=== PATIENT | female | born 1945 | race Hispanic/Latino ===

== ENCOUNTER 2022-04-26 10:24 | Inpatient (IN) | payer MEDICARE ==
[~2022-04-26] VITALS: Ht 157.5 cm; Wt 71.9 kg
[2022-04-26 10:51] LABS: BASOPHILS % (AUTO) 0.3 % (0.0-5.0); EOSINOPHILS % (AUTO) 0.5 % (0.0-8.0); HEMATOCRIT 34.6 % (36-48); LYMPHOCYTES % (AUTO) 27.1 % (21.0-51.0); MEAN CORPUSCULAR HEMOGLOBIN 27.4 pg (27.0-33.0); MEAN CORPUSCULAR HGB CONC 30.9 g/dL (32.0-36.0); MEAN CORPUSCULAR VOLUME 88.5 fL (79-99); MONOCYTES % (AUTO) 5.6 % (3.0-13.0); NEUTROPHILS % (AUTO) 65.7 % (40.0-77.0); PLATELET COUNT (AUTO) 209 K/uL (130-400); RED BLOOD CELL COUNT(AUTO) 3.91 MIL/uL (4.00-5.50); RED CELL DISTRIBUTION WIDTH 14.3 % (11.0-15.5); WHITE BLOOD COUNT (AUTO) 6.3 K/uL (4.8-10.8)
[2022-04-26 11:04] LABS: POTASSIUM 4.7 mmol/L (3.5-5.1); TOTAL PROTEIN, SERUM 8.1 g/dL (6.0-8.3)
[2022-04-26] MEDS ORDERED: ACETAMINOPHEN 500 MG TABLET PO PRN (14:00)
[2022-04-26] MEDS ORDERED: ONDANSETRON 4MG INJ IVP PRN (14:00)
[2022-04-26] MEDS ORDERED: PANTOPRAZOLE 40 MG/VIAL IVP SCH (14:00)
[2022-04-26] MEDS ORDERED: Vitamin B Complex/Vit C/Folic Acid PO SCH (14:00)
[2022-04-26] MEDS ORDERED: 0.9%NACL 1000ML 1,000 ML IV SCH (14:00)
[2022-04-26 14:04] LABS: HEMOGLOBIN A1C 7.9 % (4.0-6.0)
[2022-04-26 14:10] LABS: INR 0.93 (0.85-1.15)
[2022-04-26 14:11] LABS: PARTIAL THROMBOPLASTIN TIME 28.8 SEC (26.3-35.5)
[2022-04-26 14:18] LABS: MAGNESIUM 1.3 mg/dL (1.80-2.40); THYROID STIMULATING HORMONE 1.05 uIU/mL (0.36-3.74)
[2022-04-26] MEDS: MAGNESIUM 2GM PREMIX 50ML 50 ML IV SCH (15:51)
[2022-04-26] MEDS: INSULIN HUMULIN R 100 UNIT/ML 3ML SQ SCH ×2 (16:30→19:44)
[2022-04-26] MEDS ORDERED: SIMV-43 PO (17:03)
[2022-04-26] MEDS ORDERED: METF-446 PO (17:03)
[2022-04-26] MEDS ORDERED: INVOK100TB PO (17:03)
[2022-04-26] MEDS ORDERED: LISI10TA24 PO (17:03)
[2022-04-26] MEDS ORDERED: SITA100T12 PO (17:03)
[2022-04-26] MEDS ORDERED: OMEP20CA12 PO (17:03)
[2022-04-26] MEDS ORDERED: METO50TA18 PO (17:03)
[2022-04-26] MEDS ORDERED: ASPI-1026 PO (17:03)
[2022-04-26] MEDS ORDERED: KETOROLAC 15MG/ML VIAL (15MG/ML) IV ONE (17:30)
[2022-04-26 18:06] VITALS: BP 134/52
[2022-04-26] MEDS ORDERED: TRIH2TAB3 PO (19:43)
[2022-04-26 20:00] VITALS: BP 106/46
[2022-04-26] MEDS: TRIHEXYPHENIDYL HCL 2 MG PO SCH (21:00)
[2022-04-27] VITALS: BP 126/58
[2022-04-27 04:00] VITALS: BP 123/60
[2022-04-27 06:05] LABS: BASOPHILS % (AUTO) 0.4 % (0.0-5.0); EOSINOPHILS % (AUTO) 1.5 % (0.0-8.0); HEMATOCRIT 28.1 % (36-48); LYMPHOCYTES % (AUTO) 45.8 % (21.0-51.0); MEAN CORPUSCULAR HEMOGLOBIN 27.9 pg (27.0-33.0); MONOCYTES % (AUTO) 8.8 % (3.0-13.0); NEUTROPHILS % (AUTO) 43.3 % (40.0-77.0); PLATELET COUNT (AUTO) 179 K/uL (130-400); RED BLOOD CELL COUNT(AUTO) 3.23 MIL/uL (4.00-5.50); RED CELL DISTRIBUTION WIDTH 14.5 % (11.0-15.5); WHITE BLOOD COUNT (AUTO) 4.6 K/uL (4.8-10.8)
[2022-04-27 06:28] LABS: ALBUMIN 3.2 g/dL (3.5-5.0); CREATININE 0.9 mg/dL (0.5-1.5); MAGNESIUM 1.6 mg/dL (1.80-2.40); POTASSIUM 4.1 mmol/L (3.5-5.1); TOTAL PROTEIN, SERUM 6.6 g/dL (6.0-8.3)
[2022-04-27 06:29] LABS: RETICULOCYTE % (AUTO) 1.96 % (0.42-2.23)
[2022-04-27] MEDS: INSULIN HUMULIN R 100 UNIT/ML 3ML SQ SCH ×2 (06:56→11:30)
[2022-04-27] MEDS: MAGNESIUM 2GM PREMIX 50ML 50 ML IV SCH (06:58)
[2022-04-27 07:03] LABS: % IRON SATURATION 15.6 % (22-44)
[2022-04-27 08:00] VITALS: BP 140/58
[2022-04-27] MEDS ORDERED: ASPIRIN 325MG TAB PO SCH (09:00)
[2022-04-27] MEDS ORDERED: ASPIRIN 81 MG EC TAB PO SCH (09:00)
[2022-04-27] MEDS: TRIHEXYPHENIDYL HCL 2 MG PO SCH (09:00)
[2022-04-27] MEDS ORDERED: METOPROLOL TARTRATE 50 MG TAB PO SCH (09:00)
[2022-04-27] MEDS ORDERED: LISINOPRIL 10 MG TABLET PO SCH (09:00)
[2022-04-27] MEDS ORDERED: SIMVASTATIN 20 MG TABLET PO SCH (09:00)
[2022-04-27] MEDS ORDERED: ASPI-1197 PO (10:58)
[2022-04-27] MEDS ORDERED: METO50TA9 PO (11:06)
[2022-04-27 11:45] VITALS: BP 121/48
== END 2022-04-27 12:25 | disposition home or self-care (01) | DRG 103 ==
LOC: EDH 10:24 → EDHIP 13:43 → 4BH 17:25
PROVIDERS: ADMIT Internal Medicine; ATTEND Internal Medicine
DX: G43.909 Migraine, unspecified, not intractable, without status migrainosus (principal); E87.1 Hypo-osmolality and hyponatremia; K21.9 Gastro-esophageal reflux disease without esophagitis; E11.9 Type 2 diabetes mellitus without complications; D64.9 Anemia, unspecified; E78.00 Pure hypercholesterolemia, unspecified; E83.42 Hypomagnesemia; E86.1 Hypovolemia; G44.309 Post-traumatic headache, unspecified, not intractable; G20 Parkinson's disease; I10 Essential (primary) hypertension; Z20.822 Contact with and (suspected) exposure to COVID-19; T39.015A Adverse effect of aspirin, initial encounter; T39.315A Adverse effect of propionic acid derivatives, initial encounter; Z79.82 Long term (current) use of aspirin; Z79.899 Other long term (current) drug therapy; Y92.89 Other specified places as the place of occurrence of the external cause
CPT/HCPCS: 36415; 70450; 71045; 80053; 82550; 82607; 82728; 82746; 82948; 83036; 83540; 83550; 83735; 83874; 84443; 84484; 85025; 85045; 85610; 85730; 87635; 87804; 93005; 93306; 93356; C9113; G0378; J1885; J3475; J7030

== ENCOUNTER → 2023-11-04 | Outpatient (CLI) | payer MEDICARE ==
[~2023-11-04] MED LIST: ASPI-1197 PO; ESOM40CA66 PO; INVOK100TB PO; LISI10TA24 PO; METF-446 PO; METO-409 PO; METO50TA9 PO; OMEP20CA12 PO; SIMV-43 PO; SITA100T12 PO
[2023-11-04 12:33] LABS: ALBUMIN 3.5 g/dL (3.5-5.0); BILIRUBIN,TOTAL 0.4 mg/dL (0.2-1.0); CREATININE 0.8 mg/dL (0.5-1.0); POTASSIUM 4.5 mmol/L (3.5-5.1); TOTAL PROTEIN, SERUM 7.5 g/dL (6.0-8.3)
[2023-11-04 12:37] LABS: HEMOGLOBIN A1C 7.3 % (4.0-6.0)
== END | disposition home or self-care (01) ==
LOC: LAB 09:28
PROVIDERS: ATTEND Student in an Organized Health Care Education/Training Program
DX: K21.9 Gastro-esophageal reflux disease without esophagitis (principal); K29.70 Gastritis, unspecified, without bleeding; E78.5 Hyperlipidemia, unspecified; R07.9 Chest pain, unspecified; Z79.899 Other long term (current) drug therapy
CPT/HCPCS: 36415; 80053; 80061; 83036

== ENCOUNTER → 2023-11-06 | Outpatient (CLI) | payer MEDICARE ==
[~2023-11-06] MED LIST changes: -ESOM40CA66 PO; -METO-409 PO
== END | disposition home or self-care (01) ==
LOC: RAH 13:07
PROVIDERS: ATTEND Student in an Organized Health Care Education/Training Program
DX: I34.0 Nonrheumatic mitral (valve) insufficiency (principal); R07.9 Chest pain, unspecified
CPT/HCPCS: 93306

== ENCOUNTER → 2023-12-30 | Outpatient (CLI) | payer MEDICARE ==
[~2023-12-30] MED LIST changes: +ESOM40CA66 PO; +METO-409 PO
[2023-12-30 12:20] LABS: HEMOGLOBIN A1C 7.3 % (4.0-6.0)
[2023-12-30 12:25] LABS: ALBUMIN 3.4 g/dL (3.5-5.0); BILIRUBIN,TOTAL 0.3 mg/dL (0.2-1.0); POTASSIUM 4.1 mmol/L (3.5-5.1); TOTAL PROTEIN, SERUM 7.3 g/dL (6.0-8.3)
== END | disposition home or self-care (01) ==
LOC: LAB 08:33
PROVIDERS: ATTEND Student in an Organized Health Care Education/Training Program
DX: I25.10 Atherosclerotic heart disease of native coronary artery without angina pectoris (principal); K29.70 Gastritis, unspecified, without bleeding; E78.5 Hyperlipidemia, unspecified; E11.9 Type 2 diabetes mellitus without complications
CPT/HCPCS: 36415; 80053; 80061; 83036